=== PATIENT | male | born 1995 | race Caucasian/White ===

== ENCOUNTER 2021-11-15 20:12 | Emergency (ER) | payer OTHER ==
[~2021-11-15] VITALS: Ht 165.1 cm; Wt 77.3 kg
[2021-11-15 20:26] VITALS: BP 122/70
[2021-11-15] MEDS ORDERED: predniSONE 20 mg tablet PO ONE (21:35)
[2021-11-15] MEDS ORDERED: METH4TAB3 PO (22:02)
== END 2021-11-15 22:27 | disposition home or self-care (01) ==
LOC: ER 20:14
DX: M77.8 Other enthesopathies, not elsewhere classified (principal); Z79.899 Other long term (current) drug therapy
CPT/HCPCS: 29125; 73110; 99283; J7512